=== PATIENT | female | born 1995 | race Caucasian/White ===

== ENCOUNTER 2017-12-01 03:59 | Emergency (ER) | payer OTHER ==
[2017-12-01] MEDS ORDERED: METOCLOPRAMIDE HCL INJ/PF 10 MG/2 ML SDV IV ONE (04:32)
[2017-12-01] MEDS ORDERED: MORPHINE SULFATE 10 MG/ML INJ IV PRN (04:33)
[2017-12-01] MEDS ORDERED: NORMAL SALINE 1000 ML 1,000 ML IV ONE (04:33)
--- NOTE | 2017-12-01 04:45 | ER Document Report ---
ED General <MIRI SAMPSON - Last Filed: 12/01/17 09:30> - General Mode of Arrival: Ambulatory Information source: Patient TRAVEL OUTSIDE OF THE [place] IN LAST 30 DAYS: No <DEBBIE CUETO - Last Filed: 12/02/17 17:10> - General Chief Complaint: Abdominal Pain Stated Complaint: ABDOMINAL PAIN Time Seen by Provider: 12/01/17 04:14 Notes: Patient is an otherwise healthy 22-year-old female who presents with sharp stabbing right lower quadrant pain. Patient reports that she woke up with this approximately 3 hours prior to arrival. Patient reports associated nausea, no vomiting, diarrhea or fevers. Patient also denies any dysuria. Patient reports that her last meal was at 7 PM last night, patient did report drinking some water around midnight. Patient tried taking some Aleve for the pain with no relief. (DEBBIE CUETO) - Related Data Allergies/Adverse Reactions: Penicillins Allergy (Verified 12/01/17 04:03) Past Medical History - General Information source: Patient - Social History Smoking Status: Never Smoker Frequency of alcohol use: None Drug Abuse: None Lives with: Parents Family History: Reviewed & Not Pertinent - Medical History Medical History: Negative Surgical Hx: Negative - Immunizations Hx Diphtheria, Pertussis, Tetanus Vaccination: Yes <DEBBIE CUETO - Last Filed: 12/02/17 17:10> Review of Systems - Review of Systems Constitutional: No symptoms reported EENT: No symptoms reported Cardiovascular: No symptoms reported Respiratory: No symptoms reported Gastrointestinal: See HPI Genitourinary: No symptoms reported Female Genitourinary: No symptoms reported Musculoskeletal: No symptoms reported Skin: No symptoms reported Hematologic/Lymphatic: No symptoms reported Neurological/Psychological: No symptoms reported <DEBBIE CUETO - Last Filed: 12/02/17 17:10> Physical Exam <MIRI SAMPSON - Last Filed: 12/01/17 09:30> <DEBBIE CUETO - Last Filed: 12/02/17 17:10> - Vital signs Vitals: Temp Pulse Resp BP Pulse Ox 98 F 72 18 141/78 H 96 12/01/17 04:05 12/01/17 04:05 12/01/17 04:05 12/01/17 04:05 12/01/17 04:05 - Notes Notes: PHYSICAL EXAMINATION: GENERAL: Well-appearing, well-nourished in no acute distress. HEAD: Atraumatic, normocephalic. EYES: Pupils equal round and reactive to light, extraocular movements intact, conjunctiva are normal. ENT: Nares patent, oropharynx clear without exudates. Moist mucous membranes. NECK: Normal range of motion, supple without lymphadenopathy LUNGS: Breath sounds clear to auscultation bilaterally and equal. No wheezes rales or rhonchi. HEART: Regular rate and rhythm without murmurs ABDOMEN: Soft, nondistended abdomen. Tenderness to palpation to right lower quadrant. Guarding is present, no rebound. No peritoneal signs. No masses appreciated. Female : No CVA tenderness. Musculoskeletal: Normal range of motion, no pitting or edema. No cyanosis. NEUROLOGICAL: Cranial nerves grossly intact. Normal speech, normal gait. Normal sensory, motor exams PSYCH: Normal mood, normal affect. SKIN: Warm, Dry, normal turgor, no rashes or lesions noted. (DEBBIE CUETO) Course - Laboratory Result Diagrams: 12/01/17 04:34 12/01/17 04:34 <MIRI SAMPSON - Last Filed: 12/01/17 09:30> - Laboratory Result Diagrams: 12/01/17 04:34 12/01/17 04:34 <DEBBIE CUETO - Last Filed: 12/02/17 17:10> - Re-evaluation Re-evalutation: 12/01/17 09:27 Appendix normal on CAT scan, patient has a 2 mm stone in the right distal ureter at the UVJ, patient to be discharged with Flomax, pain medication and given urology follow-up in case she does not pass. Patient will also be sent home with a strainer. No signs of infection on urinalysis with negative leukocytes and nitrites 12/01/17 09:30 (MIRI SAMPSON) 22-year-old otherwise healthy female patient presenting with chief complaint right lower quadrant pain that started approximately 3 hours prior to arrival. Initial workup reveals a normal CBC and a normal comprehensive. On reevaluation , patient continues to have tenderness to her right lower quadrant, no rebound, guarding is present. Patient does report some relief of the pain after administration of morphine however patient does appear to be in moderate distress. Will order CT abdomen pelvis with IV and oral contrast to evaluate for possible appendicitis. (DEBBIE CUETO) - Vital Signs Vital signs: Temp Pulse Resp BP Pulse Ox 97.9 F 78 16 115/59 L 97 12/01/17 09:49 12/01/17 09:49 12/01/17 09:49 12/01/17 09:49 12/01/17 09:49 - Laboratory Laboratory results interpreted by me: 12/01/17 06:30 Urine Blood LARGE H Discharge <MIRI SAMPSON - Last Filed: 12/01/17 09:30> <DEBBIE CUETO - Last Filed: 12/02/17 17:10> - Discharge Clinical Impression: Kidney stone Condition: Stable Disposition: HOME, SELF-CARE Additional Instructions: Return immediately for any new or worsening symptoms. Follow up with primary care provider, call tomorrow to make followup appointment. If symptoms do not resolve in 7 days please follow-up with the urologist I have provided below. Prescriptions: Oxycodone HCl/Acetaminophen [Percocet 5-325 mg Tablet] 1 tab PO Q6 PRN #15 tab PRN Reason: Tamsulosin HCl [Flomax 0.4 mg Cap.sr] 0.4 mg PO DAILY #7 cap.sr.24h Referrals: GERARD MARAVILLA DO [[facility]] - Follow up as needed
[2017-12-01 04:50] LABS: ABSOLUTE EOSINOPHILS # (AUTO) 0.1 10^3/uL (0.0-0.6); ABSOLUTE LYMPHOCYTES (AUTO) 2.6 10^3/uL (0.5-4.7); ABSOLUTE MONOCYTES (AUTO) 0.7 10^3/uL (0.1-1.4); ABSOLUTE NEUT (AUTO) 3.8 10^3/uL (1.7-8.2); BASOPHILS % (AUTO) 0.6 % (0-2); EOSINOPHILS % (AUTO) 1.6 % (0-6); HEMATOCRIT 43.9 % (36.0-47.0); HEMOGLOBIN 15.3 g/dL (12.0-15.5); LYMPHOCYTES % (AUTO) 35.7 % (13-45); MEAN CORPUSCULAR HEMOGLOBIN 30.5 pg (27.0-33.4); MEAN CORPUSCULAR HGB CONC 34.8 g/dL (32.0-36.0); MEAN CORPUSCULAR VOLUME 88 fl (80-97); MONOCYTES % (AUTO) 10.3 % (3-13); PLATELET COUNT 275 10^3/uL (150-450); SEGMENTED NEUTROPHILS % (AUTO) 51.8 % (42-78); TOTAL CELLS COUNTED % (AUTO) 100 %; WHITE BLOOD COUNT 7.3 10^3/uL (4.0-10.5)
[2017-12-01 05:04] LABS: ALANINE AMINOTRANSFERASE 18 U/L (9-52); ALBUMIN 4.6 g/dL (3.5-5.0); ALKALINE PHOSPHATASE 46 U/L (38-126); ANION GAP 14 (5-19); ASPARTATE AMINO TRANSFERASE 18 U/L (14-36); BILIRUBIN,DIRECT 0.3 mg/dL (0.0-0.4); BILIRUBIN,TOTAL 0.3 mg/dL (0.2-1.3); BLOOD UREA NITROGEN 12 mg/dL (7-20); CALCIUM 9.9 mg/dL (8.4-10.2); CARBON DIOXIDE 26 mmol/L (22-30); CHLORIDE 104 mmol/L (98-107); GLUCOSE 101 mg/dL (75-110); LIPASE 58.9 U/L (23-300); POTASSIUM 4.1 mmol/L (3.6-5.0); SODIUM 143.9 mmol/L (137-145); TOTAL PROTEIN 7.3 g/dL (6.3-8.2)
[2017-12-01 06:49] LABS: APPEARANCE,URINE SLIGHTLY-CLOUDY; BILIRUBIN,URINE NEGATIVE (NEGATIVE); COLOR,URINE YELLOW; GLUCOSE, URINE NEGATIVE (NEGATIVE); KETONES,URINE NEGATIVE (NEGATIVE); LEUKOCYTE ESTERASE,URINE NEGATIVE (NEGATIVE); NITRITE,URINE NEGATIVE (NEGATIVE); PROTEIN,URINE NEGATIVE (NEGATIVE); URINE SPECIFIC GRAVITY 1.008; UROBILINOGEN,URINE NEGATIVE mg/dL (<2.0)
--- NOTE | 2017-12-01 09:08 | RADIOLOGY REPORT (SQ) ---
EXAM DESCRIPTION: CT ABD/PELVIS WITH IV ORAL COMPLETED DATE/TIME: 12/01/2017 8:54 am REASON FOR STUDY: RLQ pain eval for appendicitis COMPARISON: None. TECHNIQUE: CT scan of the abdomen and pelvis performed using helical scanning technique with dynamic intravenous contrast injection. Patient drank oral contrast. Images reviewed with lung, soft tissue , and bone windows. Reconstructed coronal and sagittal MPR images reviewed. Delayed images for evalua tion of the urinary system also acquired. All images stored on PACS. All CT scanners at this facility use dose modulation, iterative reconstruction, and/or weight based d osing when appropriate to reduce radiation dose to as low as reasonably achievable (ALARA). [facility]: Dose Right [facility]: CareDose [facility]: Dose Right [facility]: Teradose 4D [facility]: Nordicplan CONTRAST TYPE AND DOSE: contrast/concentration: Isovue 370.00 mg/ml; Total Contrast Delivered: 67.0 ml; Total Saline Delivered: 65.0 ml RENAL FUNCTION: Creatinine 0.8 RADIATION DOSE: CT Rad equipment meets quality standard of care and radiation dose reduction techniq ues were employed. CTDIvol: 5.2 - 6.5 mGy. DLP: 648 mGy-cm.. LIMITATIONS: None. FINDINGS: A 2 mm distal right ureteral calculus is present at the ureterovesical junction on axial i mage 77. There is mild right hydronephrosis and hydroureter, and slight delay in excretion of contra st from the right kidney into the collecting system. Remainder of the right kidney is otherwise unre markable. 1st LOWER CHEST: No significant findings. No nodules or infiltrates. LIVER: Normal size. No masses. No dilated ducts. SPLEEN: Normal size. No focal lesions. PANCREAS: No masses. No significant calcifications. No adjacent inflammation or peripancreatic fluid collections. Pancreatic duct not dilated. GALLBLADDER: No identified stones by CT criteria. No inflammatory changes to suggest cholecystitis. ADRENAL GLANDS: No significant masses or asymmetry. RIGHT KIDNEY AND URETER: As above LEFT KIDNEY AND URETER: No solid masses. No significant calcifications. No hydronephrosis or hydr oureter. AORTA AND VESSELS: No aneurysm. No dissection. Renal arteries, SMA, celiac without stenosis. RETROPERITONEUM: No retroperitoneal adenopathy, hemorrhage or masses. BOWEL AND PERITONEAL CAVITY: Patient drank oral contrast. No CT evidence of bowel obstruction. Larg e amount of stool in the ascending and transverse colon. No free intraperitoneal air or fluid. APPENDIX: Normal. PELVIS: No mass. No free fluid. Normal bladder. Normal size female pelvic organs. ABDOMINAL WALL: No masses. No hernias. BONES: No significant or acute findings. OTHER: No other significant finding. IMPRESSION: 2 mm distal right ureteral stone with mild right hydronephrosis and hydroureter No CT evidence of acute appendicitis TECHNICAL DOCUMENTATION: JOB ID: [id number] Quality ID # [id number]: Final reports with documentation of one or more dose reduction techniques (e.g., Au tomated exposure control, adjustment of the mA and/or kV according to patient size, use of iterative reconstruction technique) 2010 [employer]- All Rights Reserved Reading location - IP/workstation name: [email or web address]
[2017-12-01] MEDS ORDERED: MORPHINE SULFATE 10 MG/ML INJ IV ONE (09:26)
[2017-12-01 09:50] VITALS: BP 115/59
== END 2017-12-01 09:50 | disposition home or self-care (01) ==
LOC: ER 03:59
DX: N13.2 Hydronephrosis with renal and ureteral calculous obstruction (principal); R10.31 Right lower quadrant pain; R11.0 Nausea; Z88.0 Allergy status to penicillin
CPT/HCPCS: 96376; 99284; 96361; 96374; 96375; 36415; 83690; 85025; 80053; 81001; 74177; J2765; J2270; J7030

== ENCOUNTER 2018-04-25 12:45 | Emergency (ER) | payer SELFPAY ==
[2018-04-25 13:02] VITALS: BP 133/74
--- NOTE | 2018-04-25 13:05 | ER Document Report ---
HPI - HPI Patient complains to provider of: Dental pain Time Seen by Provider: 04/25/18 12:57 Onset: Other - 3 days Onset/Duration: Persistent Quality of pain: Achy Pain Level: 4 Context: Patient presents complaining of dental pain to right upper jaw and is concerned that her tooth is coming in sideways. Patient denies any fever. Patient denies any drainage or discharge. Associated Symptoms: denies: Fever, Headache, Vomiting Exacerbated by: Denies Relieved by: Denies Similar symptoms previously: Yes Recently seen / treated by doctor: No - ROS ROS below otherwise negative: Yes Systems Reviewed and Negative: Yes All other systems reviewed and negative - CONSTITUTIONAL Constitutional: DENIES: Fever - EENT EENT: DENIES: Sore Throat, Ear Pain - NEURO Neurology: DENIES: Headache - RESPIRATORY Respiratory: DENIES: Coughing - GASTROINTESTINAL Gastrointestinal: DENIES: Nausea, Patient vomiting - MUSCULOSKELETAL Musculoskeletal: DENIES: Back Pain, Neck Pain - DERM Skin Color: Normal Skin Problems: None Past Medical History - General Information source: Patient - Social History Smoking Status: Current Every Day Smoker Frequency of alcohol use: None Drug Abuse: None Family History: Reviewed & Not Pertinent Patient has suicidal ideation: No Patient has homicidal ideation: No Renal/ Medical History: Reports: Hx Kidney Stones. Denies: Hx Peritoneal Dialysis Surgical Hx: Negative - Immunizations Hx Diphtheria, Pertussis, Tetanus Vaccination: Yes Vertical Provider Document - CONSTITUTIONAL Agree With Documented VS: Yes Exam Limitations: No Limitations General Appearance: WD/WN, No Apparent Distress - INFECTION CONTROL TRAVEL OUTSIDE OF THE [place] IN LAST 30 DAYS: No - HEENT HEENT: Atraumatic, Normocephalic Mouth Diagram: 1 - Impacted third molar, minimal gingival inflammation, no abscess, no dental caries, no trismus - NECK Neck: Normal Inspection, Supple. negative: Lymphadenopathy-Left, Lymphadenopathy-Right - RESPIRATORY Respiratory: No Respiratory Distress - BACK Back: Normal Inspection - MUSCULOSKELETAL/EXTREMETIES Musculoskeletal/Extremeties: MAEW - NEURO Level of Consciousness: Awake, Alert, Appropriate Motor/Sensory: No Motor Deficit - DERM Integumentary: Warm, Dry, No Rash Course - Vital Signs Vital signs: Temp Pulse Resp BP Pulse Ox 98.4 F 74 17 133/74 H 98 04/25/18 12:56 04/25/18 12:56 04/25/18 12:56 04/25/18 12:56 04/25/18 12:56 Discharge - Discharge Clinical Impression: Pain, dental Condition: Stable Disposition: HOME, SELF-CARE Instructions: Dentist, Oral Narcotic Medication ([facility]), Toothache ([facility]) Additional Instructions: Return immediately for any new or worsening symptoms Followup with your primary care provider, call tomorrow to make a followup appointment Follow-up with a dental care provider Prescriptions: Acetaminophen with Codeine [Tylenol #3 Tablet] 1 each PO Q6 PRN #12 tablet PRN Reason: Naproxen [Naprosyn 250 Nmg Tablet] 1 tab PO BID #14 tablet Referrals: [facility] [Provider Group] - Follow up as needed
== END 2018-04-25 13:16 | disposition home or self-care (01) ==
LOC: ER 12:45
DX: K01.1 Impacted teeth (principal); K05.10 Chronic gingivitis, plaque induced; K08.89 Other specified disorders of teeth and supporting structures; F17.200 Nicotine dependence, unspecified, uncomplicated
CPT/HCPCS: 99282

== ENCOUNTER 2018-06-21 14:22 | Emergency (ER) | payer OTHER ==
[2018-06-21 14:29] VITALS: BP 129/53
--- NOTE | 2018-06-21 15:23 | ER Document Report ---
HPI - HPI Time Seen by Provider: 06/21/18 15:10 Pain Level: 3 Notes: Patient is an otherwise healthy 22-year-old female who presents with generalized dental pain and bleeding from the gums. Patient denies any trauma to the area. Patient reports that her gums bleed occasionally but have been bleeding more than usual lately and she has generalized pain. - CONSTITUTIONAL Constitutional: DENIES: Fever, Chills - REPRODUCTIVE Reproductive: DENIES: : Past Medical History - General Information source: Patient - Social History Smoking Status: Current Every Day Smoker Chew tobacco use (# tins/day): No Frequency of alcohol use: None Drug Abuse: None Family History: Reviewed & Not Pertinent Patient has suicidal ideation: No Patient has homicidal ideation: No Renal/ Medical History: Reports: Hx Kidney Stones. Denies: Hx Peritoneal Dialysis - Immunizations Hx Diphtheria, Pertussis, Tetanus Vaccination: Yes Vertical Provider Document - CONSTITUTIONAL Notes: PHYSICAL EXAMINATION: GENERAL: Well-appearing, well-nourished and in no acute distress. HEAD: Atraumatic, normocephalic. EYES: Pupils equal round extraocular movements intact, conjunctiva are normal. ENT: Nares patent, inflamed gums. NECK: Normal range of motion LUNGS: No respiratory distress Musculoskeletal: Normal range of motion NEUROLOGICAL: Normal speech, normal gait. PSYCH: Normal mood, normal affect. SKIN: Warm, Dry, normal turgor, no rashes or lesions noted. - INFECTION CONTROL TRAVEL OUTSIDE OF THE [place] IN LAST 30 DAYS: No Course - Re-evaluation Re-evalutation: Patient will be started on p.o. antibiotics and chlorhexidine oral mouthwash. Encouraged to follow-up with dentist. - Vital Signs Vital signs: Temp Pulse Resp BP Pulse Ox 98.2 F 89 16 129/53 H 99 06/21/18 14:28 06/21/18 14:28 06/21/18 14:28 06/21/18 14:28 06/21/18 14:28 Discharge - Discharge Clinical Impression: Gingivitis Condition: Stable Disposition: HOME, SELF-CARE Additional Instructions: Please take medications as prescribed. Take ibuprofen 600 mg every 6 hours for any pain and inflammation. Please call a dentist to get a follow-up appointment. [facility] only does dental extractions. Prescriptions: Chlorhexidine Gluconate [Paroex] 473 ml MM BID #1 bottle Clindamycin HCl 300 mg PO TID #30 capsule
== END 2018-06-21 15:34 | disposition home or self-care (01) ==
LOC: ER 14:22
DX: K05.10 Chronic gingivitis, plaque induced (principal); F17.200 Nicotine dependence, unspecified, uncomplicated; Z87.442 Personal history of urinary calculi
CPT/HCPCS: 99282